=== PATIENT | male | born 1940 | race Two or more races ===

== ENCOUNTER 2025-04-15 14:44 | Inpatient (IN) | payer MEDICARE, OTHER ==
[~2025-04-15] VITALS: Ht 149.9 cm; Wt 44.5 kg
[~2025-04-15 14:44] MED LIST: NITR100C15 PO
[2025-04-15] MEDS ORDERED: CLON0.1T PO (15:36)
[2025-04-15] MEDS ORDERED: FINA5TAB11 PO (15:36)
[2025-04-15] MEDS ORDERED: ACET325T53 PO (15:36)
[2025-04-15] MEDS ORDERED: DIVA125C2 PO (15:36)
[2025-04-15] MEDS ORDERED: MIRT-90 PO (15:36)
[2025-04-15] MEDS ORDERED: TAMS-12 PO (15:36)
[2025-04-15] MEDS ORDERED: GUAI100S9 PO (15:36)
[2025-04-15] MEDS ORDERED: CHOL100043 PO (15:36)
[2025-04-15] MEDS ORDERED: LEVO75TA7 PO (15:36)
[2025-04-15] MEDS ORDERED: MULT-594 PO (15:36)
[2025-04-15] MEDS ORDERED: TRAZ-182 PO (15:36)
[2025-04-15] MEDS ORDERED: MELA5TAB PO (15:36)
[2025-04-15 15:54] LABS: APPEARANCE,URINE CLEAR (CLEAR); BLOOD, URINE Moderate Ery/uL (NEGATIVE); LEUKOCYTE ESTERASE ,URINE Large (NEGATIVE); UGLUCOSE Negative (NEGATIVE)
[2025-04-15 15:55] LABS: NITRITE, URINE NEGATIVE (NEGATIVE)
[2025-04-15 16:10] LABS: ADD URINE CULTURE YES; SQUAMOUS EPITHELIAL CELL,UR 0-2 /HPF (None Seen)
[2025-04-15 16:48] LABS: PLATELET COUNT (AUTO) 166 K/uL (150-450); RED BLOOD CELL COUNT(AUTO) 4.87 MIL/uL (4.5-6.0); RED CELL DISTRIBUTION WIDTH 16.8 % (11.5-15.0); WHITE BLOOD COUNT (AUTO) 7.8 K/uL (4.3-11.0)
[2025-04-15] MEDS ORDERED: CEFTRIAXONE 1GM BAG (ER ONLY) 50 ML IV ONE (16:58)
[2025-04-15 17:01] LABS: CALCIUM, SERUM 8.6 mg/dL (8.5-10.1); CREATININE 1.4 mg/dL (0.6-1.3); SODIUM SERUM 138 mmol/L (136-145); UREA NITROGEN, BLOOD 50 mg/dL (7-18)
[2025-04-15] MEDS: CEFTRIAXONE 1GM BAG (ER ONLY) 1 GM/50 ML PIGGYBACK IV ONE (17:02)
[2025-04-15 17:04] LABS: LACTIC ACID 1.5 mmol/L (0.4-2.0)
[2025-04-15 17:11] LABS: ASPARTATE AMINOTRANSFERASE 15 U/L (15-37); TOTAL PROTEIN, SERUM 7.1 g/dL (6.4-8.2)
[2025-04-15] MEDS ORDERED: ACETAMINOPHEN 325 MG TABLET PO PRN (18:30)
[2025-04-15] MEDS ORDERED: ONDANSETRON HCL/PF 4 MG/2 ML VIAL IVP PRN (18:30)
[2025-04-15] MEDS ORDERED: Z GUARD REMEDY 4 OZ OINT TP PRN (18:30)
[2025-04-15] MEDS: IV NS 0.9% 1,000 ML IV PRN (19:59)
[2025-04-15 20:00] VITALS: BP 117/60; TEMP 98.2; O2SAT 96
[2025-04-15] MEDS: HEPARIN SODIUM, PORCINE 5000 UNITS/1 ML VIAL SQ SCH (21:12)
[2025-04-15] MEDS: TAMSULOSIN 0.4 MG CAP.SR.24H PO SCH (22:00)
[2025-04-15] MEDS: TRAZODONE 50 MG TABLET PO SCH (22:00)
[2025-04-15] MEDS: MIRTAZAPINE 15 MG TABLET PO SCH (22:00)
[2025-04-16 04:00] VITALS: BP 128/73; TEMP 97.3; O2SAT 99
[2025-04-16] MEDS: PANTOPRAZOLE 40 MG TABLET.DR PO SCH (07:30)
[2025-04-16] MEDS: LEVOTHYROXINE SODIUM 75 MCG TABLET PO SCH (07:30)
[2025-04-16 08:00] VITALS: BP 154/75; TEMP 97.7; O2SAT 100
[2025-04-16] MEDS: MULTIVITAMINS,THERAGRAN 1 UDTAB TABLET PO SCH (08:04)
[2025-04-16] MEDS: FINASTERIDE (5 MG) 5 MG TABLET PO SCH (08:04)
[2025-04-16] MEDS: CHOLECALCIFEROL 1,000 UNIT TABLET (VIT D3) PO SCH (08:05)
[2025-04-16 16:00] VITALS: BP 155/88; TEMP 97.6; O2SAT 100
[2025-04-16] MEDS: CEFTRIAXONE 1 G in IV D5W 50 ML IV SCH (16:16)
[2025-04-16 20:08] VITALS: BP 146/90; TEMP 98.2; O2SAT 100
[2025-04-17 04:00] VITALS: BP 160/89; TEMP 98.2; O2SAT 98
[2025-04-17] MEDS: PANTOPRAZOLE 40 MG/PACK PACK PO SCH (08:07)
[2025-04-17 15:28] LABS: PLATELET COUNT (AUTO) 235 K/uL (150-450); RED BLOOD CELL COUNT(AUTO) 5.01 MIL/uL (4.5-6.0); RED CELL DISTRIBUTION WIDTH 15.8 % (11.5-15.0); WHITE BLOOD COUNT (AUTO) 6.2 K/uL (4.3-11.0)
[2025-04-17 15:56] LABS: CREATINE KINASE, TOTAL 71 U/L (39-308)
[2025-04-17 16:00] VITALS: BP 139/82; TEMP 98.2; O2SAT 98
[2025-04-17 16:04] LABS: ASPARTATE AMINOTRANSFERASE 16 U/L (15-37); CALCIUM, SERUM 8.6 mg/dL (8.5-10.1); CREATININE 1.2 mg/dL (0.6-1.3); PHOSPHORUS 2.1 mg/dL (2.5-4.9); SODIUM SERUM 146 mmol/L (136-145); TOTAL PROTEIN, SERUM 7.4 g/dL (6.4-8.2); UREA NITROGEN, BLOOD 32 mg/dL (7-18)
[2025-04-17 20:10] VITALS: BP 145/89; TEMP 99.9; O2SAT 98
[2025-04-18] MEDS ORDERED: POTASSIUM PHOSPHATE MM 7.5 MMOL in IV NS 0.9% 100 ML IV SCH (01:00)
[2025-04-18 04:00] VITALS: BP 158/79; TEMP 97.6; O2SAT 97
[2025-04-18 07:29] LABS: PLATELET COUNT (AUTO) 172 K/uL (150-450); RED BLOOD CELL COUNT(AUTO) 4.68 MIL/uL (4.5-6.0); RED CELL DISTRIBUTION WIDTH 17.1 % (11.5-15.0); WHITE BLOOD COUNT (AUTO) 5.9 K/uL (4.3-11.0)
[2025-04-18 08:00] VITALS: BP 146/92; TEMP 97.5; O2SAT 99
[2025-04-18 08:13] LABS: PTH, INTACT 26 pg/mL (15-65)
[2025-04-18] MEDS: POTASSIUM PHOSPHATE MM 7.5 MMOL in IV NS 0.9% 100 ML IV SCH (08:47)
[2025-04-18 09:31] LABS: CALCIUM, SERUM 8.4 mg/dL (8.5-10.1); CREATININE 1.0 mg/dL (0.6-1.3); PHOSPHORUS 1.7 mg/dL (2.5-4.9); SODIUM SERUM 146.0 mmol/L (136-145); UREA NITROGEN, BLOOD 27.0 mg/dL (7-18)
[2025-04-18] MEDS ORDERED: DOSING PER PHARMACY-CEFEPIME IVPB XX PRN (11:00)
[2025-04-18] MEDS: IV D5W 1,000 ML IV PRN (12:39)
[2025-04-18] MEDS: CEFEPIME 2 GM in IV D5W 100 ML IV SCH (14:36)
[2025-04-18 16:00] VITALS: BP 161/101; TEMP 97.7; O2SAT 99
[2025-04-18 16:36] VITALS: BP 158/91; TEMP 97.7; O2SAT 99
[2025-04-18 20:00] VITALS: BP 115/50; TEMP 98.2; O2SAT 98
[2025-04-19 04:00] VITALS: BP 119/71; TEMP 97.5; O2SAT 96
[2025-04-19 08:00] VITALS: BP 147/47; TEMP 97.5; O2SAT 98
[2025-04-19 16:00] VITALS: BP 148/80; TEMP 97.5; O2SAT 97
[2025-04-19 19:43] LABS: PLATELET COUNT (AUTO) 157 K/uL (150-450); RED BLOOD CELL COUNT(AUTO) 4.54 MIL/uL (4.5-6.0); RED CELL DISTRIBUTION WIDTH 17.0 % (11.5-15.0); WHITE BLOOD COUNT (AUTO) 5.9 K/uL (4.3-11.0)
[2025-04-19 19:55] LABS: CALCIUM, SERUM 8.0 mg/dL (8.5-10.1); CREATININE 1.0 mg/dL (0.6-1.3); PHOSPHORUS 2.2 mg/dL (2.5-4.9); SODIUM SERUM 140.0 mmol/L (136-145); UREA NITROGEN, BLOOD 18.0 mg/dL (7-18)
[2025-04-19 20:00] VITALS: BP 158/98; TEMP 97.3; O2SAT 97
[2025-04-20 01:30] VITALS: BP 135/90; TEMP 97.3; O2SAT 97
[2025-04-20 04:00] VITALS: BP 147/82; TEMP 97.2; O2SAT 97
[2025-04-20 08:00] VITALS: BP 145/73; TEMP 97.8; O2SAT 99
[2025-04-20] MEDS ORDERED: CEFE2FRO IV (10:56)
[2025-04-27 19:08] LABS: *SPE A/G RATIO 0.8 (0.7-1.7); *SPE ALBUMIN 2.9 g/dL (2.9-4.4); *SPE ALPHA-1-GLOBULIN 0.4 g/dL (0.0-0.4); *SPE ALPHA-2-GLOBULIN 0.7 g/dL (0.4-1.0); *SPE BETA GLOBULIN 1.2 g/dL (0.7-1.3); *SPE GLOBULIN, TOTAL 3.7 g/dL (2.2-3.9); *SPE M-SPIKE 0.8 g/dL (Not Observed); *SPE PROTEIN TOTAL 6.6 g/dL (6.0-8.5); *SPEGAMMA GLOBULIN 1.4 g/dL (0.4-1.8)
== END 2025-04-20 15:20 | DRG 698 ==
LOC: ER 14:50 → MEDSG1 17:27
PROVIDERS: ADMIT Nurse Practitioner Family; ATTEND Nurse Practitioner Family
DX: T83.511A Infection and inflammatory reaction due to indwelling urethral catheter, initial encounter (principal); G93.41 Metabolic encephalopathy; N17.9 Acute kidney failure, unspecified; E44.0 Moderate protein-calorie malnutrition; M48.54XA Collapsed vertebra, not elsewhere classified, thoracic region, initial encounter for fracture; M48.56XA Collapsed vertebra, not elsewhere classified, lumbar region, initial encounter for fracture; Z68.1 Body mass index [BMI] 19.9 or less, adult; N39.0 Urinary tract infection, site not specified; E86.0 Dehydration; B96.5 Pseudomonas (aeruginosa) (mallei) (pseudomallei) as the cause of diseases classified elsewhere; E03.9 Hypothyroidism, unspecified; E88.09 Other disorders of plasma-protein metabolism, not elsewhere classified; K21.9 Gastro-esophageal reflux disease without esophagitis; R62.7 Adult failure to thrive; Z66 Do not resuscitate; N40.1 Benign prostatic hyperplasia with lower urinary tract symptoms; F03.90 Unspecified dementia, unspecified severity, without behavioral disturbance, psychotic disturbance, mood disturbance, and anxiety; R53.1 Weakness; E83.9 Disorder of mineral metabolism, unspecified; I12.9 Hypertensive chronic kidney disease with stage 1 through stage 4 chronic kidney disease, or unspecified chronic kidney disease; N18.9 Chronic kidney disease, unspecified; I70.0 Atherosclerosis of aorta; Y84.6 Urinary catheterization as the cause of abnormal reaction of the patient, or of later complication, without mention of misadventure at the time of the procedure; Y92.129 Unspecified place in nursing home as the place of occurrence of the external cause; E83.89 Other disorders of mineral metabolism
CPT/HCPCS: 36415; 70450-TC; 71045-TC; 73521; 80048-TC; 80053-TC; 80076-TC; 81001; 82550-TC; 83605-TC; 83735-TC; 83970; 84100-TC; 84155; 84165; 85025-TC; 87040-TC; 87086-TC; 87186-TC; 92526; 92611; A4223; G0378; J0692; J0696; J1644; J3490; J7030; J7050; J7060; J7070

== ENCOUNTER 2025-05-20 20:12 | Inpatient (IN) | payer MEDICARE, OTHER ==
[~2025-05-20] VITALS: Ht 170.2 cm; Wt 39.5 kg
[~2025-05-20 20:12] MED LIST changes: +ACET325T53 PO; +CEFE2FRO IV; +CHOL100043 PO; +CLON0.1T PO; +DIVA125C2 PO; +FINA5TAB11 PO; +GUAI100S9 PO; +LEVO75TA7 PO; +MELA5TAB PO; +MIRT-90 PO; +MULT-594 PO; -NITR100C15 PO; +TAMS-12 PO; +TRAZ-182 PO
[2025-05-20 22:27] LABS: PLATELET COUNT (AUTO) 288 K/uL (150-450); RED BLOOD CELL COUNT(AUTO) 4.37 MIL/uL (4.5-6.0); RED CELL DISTRIBUTION WIDTH 17.1 % (11.5-15.0); WHITE BLOOD COUNT (AUTO) 7.6 K/uL (4.3-11.0)
[2025-05-20 22:36] LABS: SODIUM SERUM 142.0 mmol/L (136-145)
[2025-05-20 22:52] LABS: ASPARTATE AMINOTRANSFERASE 20.0 U/L (15-37); CALCIUM, SERUM 8.2 mg/dL (8.5-10.1); CREATININE 1.1 mg/dL (0.6-1.3); TOTAL PROTEIN, SERUM 7.5 g/dL (6.4-8.2); UREA NITROGEN, BLOOD 23.0 mg/dL (7-18)
[2025-05-20 22:59] LABS: APPEARANCE,URINE CLEAR (CLEAR); BLOOD, URINE NEGATIVE Ery/uL (NEGATIVE); LEUKOCYTE ESTERASE ,URINE 1+ (NEGATIVE); NITRITE, URINE POSITIVE (NEGATIVE); UGLUCOSE NEGATIVE (NEGATIVE)
[2025-05-20 23:18] LABS: ADD URINE CULTURE YES; SQUAMOUS EPITHELIAL CELL,UR 0-2 /HPF (None Seen)
[2025-05-20] MEDS ORDERED: IMIPENEM IM SCH (23:30)
[2025-05-20] MEDS ORDERED: CILASTATIN SODIUM IM SCH (23:30)
[2025-05-21] MEDS ORDERED: Z GUARD REMEDY 4 OZ OINT TP PRN (02:00)
[2025-05-21] MEDS ORDERED: DOSING PER PHARMACY-CEFEPIME IVPB XX PRN (02:00)
[2025-05-21] MEDS ORDERED: ONDANSETRON HCL/PF 4 MG/2 ML VIAL IVP PRN (02:00)
[2025-05-21] MEDS ORDERED: CEFEPIME 1 GM VIAL IM SCH (02:30)
[2025-05-21] MEDS: ENOXAPARIN SODIUM 40 MG/0.4 ML DISP.SYRIN SQ SCH (03:21)
[2025-05-21] MEDS: IV 1/2NS 1000 ML 1,000 ML IV PRN (03:22)
[2025-05-21] MEDS ORDERED: CEFEPIME 1 GM VIAL ONE (03:49)
[2025-05-21] MEDS: CEFEPIME 1 GM in IV D5W 50 ML IV SCH ×2 (04:53→08:53)
[2025-05-21 05:29] VITALS: BP 145/70; TEMP 97.9; O2SAT 97
[2025-05-21] MEDS: PANTOPRAZOLE 40 MG TABLET.DR PO SCH (07:30)
[2025-05-21] MEDS: LEVOTHYROXINE SODIUM 75 MCG TABLET PO SCH (07:30)
[2025-05-21 07:51] LABS: PLATELET COUNT (AUTO) 274 K/uL (150-450); RED BLOOD CELL COUNT(AUTO) 4.34 MIL/uL (4.5-6.0); RED CELL DISTRIBUTION WIDTH 17.1 % (11.5-15.0); WHITE BLOOD COUNT (AUTO) 7.1 K/uL (4.3-11.0)
[2025-05-21 08:16] LABS: CALCIUM, SERUM 8.3 mg/dL (8.5-10.1); CREATININE 1.0 mg/dL (0.6-1.3); SODIUM SERUM 141.0 mmol/L (136-145); UREA NITROGEN, BLOOD 21.0 mg/dL (7-18)
[2025-05-21] MEDS: DIVALPROEX SODIUM 125 MG CAP.SPRINK PO SCH (08:53)
[2025-05-21] MEDS: FINASTERIDE (5 MG) 5 MG TABLET PO SCH (08:53)
[2025-05-21] MEDS: MULTIVITAMINS,THERAGRAN 1 UDTAB TABLET PO SCH (08:53)
[2025-05-21 12:00] VITALS: BP 155/94; TEMP 97.9; O2SAT 97
[2025-05-21] MEDS: hydrALAZINE HCL IV 20 MG VIAL IV PRN (13:21)
[2025-05-21 20:00] VITALS: BP 131/91; TEMP 98.2; O2SAT 98
[2025-05-21] MEDS: MIRTAZAPINE 15 MG TABLET PO SCH (21:59)
[2025-05-21] MEDS: TRAZODONE 50 MG TABLET PO SCH (21:59)
[2025-05-21] MEDS: TAMSULOSIN 0.4 MG CAP.SR.24H PO SCH (21:59)
[2025-05-22 04:00] VITALS: BP 145/93; TEMP 97.7; O2SAT 98
[2025-05-22 08:00] VITALS: BP 157/57; TEMP 97.7; O2SAT 93
[2025-05-22] MEDS: ACETAMINOPHEN 325 MG TABLET PO PRN (10:18)
[2025-05-22 16:00] VITALS: BP 154/65; TEMP 97.9; O2SAT 93
[2025-05-22 20:00] VITALS: BP 123/81; TEMP 97.9; O2SAT 93
[2025-05-23 04:00] VITALS: BP 130/93; TEMP 97.6; O2SAT 97
[2025-05-23 08:00] VITALS: BP 164/84; TEMP 97; O2SAT 97
[2025-05-23 12:46] VITALS: BP 142/94; TEMP 97; O2SAT 97
[2025-05-23 16:00] VITALS: BP 159/103; TEMP 98.9; O2SAT 97
[2025-05-23 17:32] VITALS: BP 142/81; TEMP 98; O2SAT 97
[2025-05-23] MEDS: IV D5/ 0.9% NACL 1,000 ML IV SCH (17:39)
[2025-05-23 20:00] VITALS: BP 114/68; TEMP 97.9; O2SAT 98
[2025-05-24 04:00] VITALS: BP 150/83; TEMP 98.1; O2SAT 97
== END 2025-05-24 12:37 | DRG 640 ==
LOC: ER 20:15 → TELE1 05-21 01:37 → MEDSG1 05-21 03:16 → UNDODISIN 05-23 14:47 → MEDSG1 05-23 16:24
PROVIDERS: ADMIT Nurse Practitioner Family; ATTEND Nurse Practitioner Acute Care
DX: E86.0 Dehydration (principal); E43 Unspecified severe protein-calorie malnutrition; G93.41 Metabolic encephalopathy; R64 Cachexia; N39.0 Urinary tract infection, site not specified; Z68.1 Body mass index [BMI] 19.9 or less, adult; I82.441 Acute embolism and thrombosis of right tibial vein; G30.9 Alzheimer's disease, unspecified; F02.80 Dementia in other diseases classified elsewhere, unspecified severity, without behavioral disturbance, psychotic disturbance, mood disturbance, and anxiety; R79.89 Other specified abnormal findings of blood chemistry; Z66 Do not resuscitate; I10 Essential (primary) hypertension; N40.0 Benign prostatic hyperplasia without lower urinary tract symptoms; F32.9 Major depressive disorder, single episode, unspecified; Z79.890 Hormone replacement therapy; B96.89 Other specified bacterial agents as the cause of diseases classified elsewhere; E88.09 Other disorders of plasma-protein metabolism, not elsewhere classified; R62.7 Adult failure to thrive; D64.9 Anemia, unspecified; I73.9 Peripheral vascular disease, unspecified; Z87.81 Personal history of (healed) traumatic fracture; L89.626 Pressure-induced deep tissue damage of left heel; L89.616 Pressure-induced deep tissue damage of right heel; R60.9 Edema, unspecified; Z79.899 Other long term (current) drug therapy
CPT/HCPCS: 36415; 70450-TC; 71045-TC; 80048-TC; 80076-TC; 81001; 83735-TC; 85025-TC; 87081-TC; 87086-TC; 87186-TC; 93970-TC; 97110-TC; 97530-TC; A4223; A6213; G0378; J0360; J0692; J1650; J3490; J7042; J7060